=== PATIENT | male | born 1950 | race Caucasian/White ===

== ENCOUNTER 2020-04-06 11:08 | Outpatient (CLI) | payer OTHER | END 2020-04-06 11:20 | disposition home or self-care (01) | LOC: NUCLEAR 11:08 | PROVIDERS: ATTEND Internal Medicine | DX: G45.8 Other transient cerebral ischemic attacks and related syndromes (principal) ==

== ENCOUNTER 2020-05-24 08:56 | Emergency (ER) | payer OTHER ==
[~2020-05-24] VITALS: Ht 182.9 cm; Wt 63.5 kg
[2020-05-24] MEDS ORDERED: COZAAR100 MG (09:11)
[2020-05-24] MEDS ORDERED: NORVASC2.5 M1 (09:12)
[2020-05-24] MEDS ORDERED: PLAVIX75 MG (09:12)
[2020-05-24] MEDS ORDERED: PRAVASTATIN SOD20 MG (09:12)
[2020-05-24] MEDS ORDERED: MOTION SICKNESS25 M1 PO (14:38)
== END 2020-05-24 14:48 ==
LOC: ER 08:56
DX: H81.13 Benign paroxysmal vertigo, bilateral (principal); R53.1 Weakness; Z20.828 Contact with and (suspected) exposure to other viral communicable diseases

== ENCOUNTER 2023-03-08 08:56 | Outpatient (CLI) | payer OTHER ==
[~2023-03-08 08:56] MED LIST: COZAAR100 MG; MOTION SICKNESS25 M1 PO; NORVASC2.5 M1; PLAVIX75 MG; PRAVASTATIN SOD20 MG
== END 2023-03-08 09:02 | disposition home or self-care (01) ==
LOC: SONOGRAMA 08:56
PROVIDERS: ATTEND Internal Medicine
DX: N18.31 Chronic kidney disease, stage 3a (principal)

== ENCOUNTER 2023-11-22 07:20 | Outpatient (CLI) | payer OTHER | END 2023-11-22 07:22 | disposition home or self-care (01) | LOC: NUCLEAR 07:20 | PROVIDERS: ATTEND Internal Medicine | DX: I25.10 Atherosclerotic heart disease of native coronary artery without angina pectoris (principal) | CPT/HCPCS: 78452; 93017; A9500 ==

== ENCOUNTER 2024-06-12 18:00 | Emergency (ER) | payer OTHER ==
[~2024-06-12] VITALS: Ht 182.9 cm; Wt 61.2 kg
== END 2024-06-12 19:55 | disposition home or self-care (01) ==
LOC: ER 18:01
DX: H11.31 Conjunctival hemorrhage, right eye (principal); I10 Essential (primary) hypertension

== ENCOUNTER → 2024-10-07 | Outpatient (CLI) | payer OTHER | END | disposition home or self-care (01) | LOC: SONOGRAMA 11:22 | PROVIDERS: ATTEND Internal Medicine | DX: M25.512 Pain in left shoulder (principal) ==

== ENCOUNTER → 2024-12-30 | Emergency (ER) | payer OTHER ==
[~2024-12-30] VITALS: Ht 182.9 cm; Wt 61.2 kg
[~2024-12-30] MED LIST changes: +ASA81 MG; +ATORVASTATIN CA20 MG; +COZAAR25 MG; +DICLOFENAC POTA50 MG PO; +FENOFIBRIC ACI105 MG; +PANTOPRAZOLE SO20 MG
[2024-12-30 07:41] VITALS: BP 145/66; O2SAT 99
== END | disposition home or self-care (01) ==
LOC: ER 07:13
DX: K30 Functional dyspepsia (principal); I10 Essential (primary) hypertension

== ENCOUNTER 2025-02-12 07:28 | Outpatient (CLI) | payer OTHER | END 2025-02-12 07:31 | disposition home or self-care (01) | LOC: SONOGRAMA 07:28 | PROVIDERS: ATTEND Internal Medicine | DX: N20.0 Calculus of kidney (principal); N18.2 Chronic kidney disease, stage 2 (mild) ==